=== PATIENT | male | born 1995 | race African-American/Black ===

== ENCOUNTER 2022-07-30 08:29 | Emergency (ER) | payer OTHER, SELFPAY ==
--- NOTE | ~2022-07-30 | CT_ITS ---
EXAMINATION: CT abdomen pelvis wo IV con CLINICAL INFORMATION: Reason for Exam LLQ pain with vomiting COMPARISON: No prior CT available for comparison. TECHNIQUE: Multidetector volumetric imaging was performed from the superior aspect of the liver through the pubic symphysis , noncontrasted study. Sagittal and coronal reformatted images were obtained on the technologist's workstation. This CT examination was performed using dose optimization techniques as appropriate, variously including the following: *Automated exposure control *Adjustment of mA and/or kV according to patient size (this includes techniques or standardized protocols for targeted exams where dose is matched to indication/reason for exam; i.e. extremities or head) *Use of iterative reconstruction technique DLP: 710 mGy-cm FINDINGS: LOWER THORAX: Included lung bases are clear. HEPATOBILIARY: Focal hypodense area in the right lobe of the liver segment 7 measures 1.4 x 0.8 cm, not well characterized on this noncontrast CT scan, could be a hemangioma, versus other liver lesions. This could be further characterized with more imaging including ultrasound or MRI. GALLBLADDER: Gallbladder unremarkable. SPLEEN: Spleen is normal in size. PANCREAS: No focal mass or ductal dilatation. STOMACH AND GASTROINTESTINAL TRACT: Stomach is grossly unremarkable. There is no bowel distention or thickening. Appendix not visualized however no secondary signs of appendicitis, cecal fat is clear. No dilated blind loop around the cecum. ADRENALS: No adrenal nodules. KIDNEYS/URETERS: Multiple tiny nonobstructing kidney stones, measuring 1 mm each in both right and left kidneys, no obstruction, no hydronephrosis. Perinephric fat remain clear. No hydronephrosis. URINARY BLADDER: Urinary bladder is decompressed unopacified. PELVIC VISCERA: Rectum and perirectal fat are clear. PERITONEUM: No free air or fluid. LYMPH NODES: No lymphadenopathy. VASCULAR:Abdominal aorta normal in size, no aneurysm found. BONES, ABDOMINAL WALL AND SOFT TISSUES: Age-appropriate changes of the spine and skeletal system, no destructive osteolytic or osteosclerotic bone lesion found CT/CT abdomen pelvis wo IV con IMPRESSION: * No CT evidence of acute intra-abdominal process to explain patient's pain symptoms. * There are tiny bilateral nonobstructing kidney stones. No hydronephrosis. * Focal hypodense area in the right lobe of the liver segment 7 measures 1.4 x 0.8 cm, not well characterized on this noncontrast CT scan, could be a hemangioma versus other liver lesions. This could be further characterized with more imaging including ultrasound or contrast-enhanced MRI.
--- NOTE | ~2022-07-30 | US_ITS ---
EXAMINATION: US ABDOMEN LIMITED CLINICAL INFORMATION: Abdominal pain. COMPARISON: CT abdomen and pelvis noncontrast 07/30/2022. TECHNIQUE: Real-time imaging of the right upper quadrant abdominal viscera. FINDINGS: PANCREAS: The visualized pancreas is normal in size and contour and echogenicity. The distal body and tail are obscured by bowel gas and not imaged. There is no pancreatic ductal dilatation or retroperitoneal effusion. LIVER: The liver is normal in size and smooth in contour and homogeneous in echogenicity. The hypodensity noted on CT segment 7 right lobe is not demonstrated on ultrasound. There is no parenchymal lesion. No intrahepatic biliary duct dilatation seen. Color Doppler shows portal flow towards the liver. GALLBLADDER: Distention. No wall thickening, calculi, or sludge. No pericholecystic fluid. Negative sonographic Wagner's sign. COMMON BILE DUCT: Normal in caliber measuring 0.6 cm in diameter. RIGHT KIDNEY: Normal. No hydronephrosis. No renal calculi or focal parenchymal lesions. The kidney measures 9.9 cm in maximum dimension. FREE FLUID: None. US/US abdomen limited IMPRESSION: 1. No cholelithiasis or ductal dilatation. 2. No right hydronephrosis. 3. Liver unremarkable. Hypodensity noted on CT segment 7 right lobe not demonstrated on ultrasound.
[2022-07-30 08:52] VITALS: BP 149/94; PULSE 74; RESP 16; TEMP 36.8; O2SAT 98; BMI 32.5
[2022-07-30] MEDS: Ondansetron ODT 4 MG TAB.RAPDIS TRANSLINGU (09:10)
[2022-07-30 09:11] VITALS: BP 142/92; PULSE 64; RESP 16; TEMP 36.4; O2SAT 97
--- NOTE | 2022-07-30 09:25 | PC.NURSE ---
patient a/ox4 . juan arla . heart rate regular at 76 beats per minute . breathing even and unlabored . lungs clear throughout . skin moist , arm and appropriate for ethnicity . abdomen soft . hypoactive bowel sounds noted throughout . rebound tenderness noted in left lower quadrant , patient reports 8 out of ten pain level . patient vomited once on arrival to room , medicated with sublingual zofran as ordered . patient on secured entrance monitor . patient aware of plan of care .
[2022-07-30] MEDS: polyethylene glycoL 3350 17 GM POWD.PACK PO (09:34)
--- NOTE | 2022-07-30 09:36 | ED_ITS ---
HPI - Nausea/Vomiting/Diarrhea General Chief complaint: Nausea/Vomiting/Diarrhea Stated complaint: Vomiting Time Seen by Provider: 07/30/22 08:57 Source: patient Mode of arrival: ambulatory Limitations: no limitations History of Present Illness HPI Narrative: 26-year-old male with a past medical history of pediatric constipation presents emergency department with complaints of LLQ abdominal pain, nausea, vomiting, and diarrhea since 2:00 a.m. with an accompanying headache. He states he was drinking a large volume of port wine, 18% alcohol per patient, yesterday and smoking marijuana prior to the beginning of his symptoms. He describes his emesis as a mix of undigested food with blood clots and states he has not moved his bowels in 3 days and describes today's diarrhea as green, thin, and 'vile'. He describes his left lower quadrant pain as sharp, 8/10 pain. Denies any melena, hematochezia, shortness of breath, chest pain, vision changes, or ear pain. He denies any recent illness or known sick contacts. MD elicited complaint: nausea, vomiting, diarrhea and abdominal pain Onset (ago): hour(s) Description of vomiting: food contents and bloody Description of diarrhea: loose and other (green) Associated nausea: Yes Associated abdominal pain: Yes Location of pain: LLQ Pain consistency: constant Severity: severe Pain scale (0-10): 8 Quality: aching and sharp Exacerbating factors: vomiting Relieving factors: none Context: alcohol abuse and marijuana use Associated symptoms: denies other symptoms Treatment prior to arrival: none Related Data Allergies Allergy/AdvReac Type Severity Reaction Status Date / Time No Known Allergies Allergy Verified 07/30/22 08:51 Review of Systems Review of Systems: In addition to documented HPI above, the additional ROS was obtained: Constitutional: No Weight loss, No Fever, No Chills ENT/Mouth: No Ear Pain, No Nasal Congestion, No Sinus Pain, No Hoarseness, No sore throat, No Rhinorrhea, No Swallowing Difficulty Cardiovascular: No Chest Pain, No SOB Respiratory: No Cough, No Sputum, No Wheezing Gastrointestinal: Per HPI Genitourinary: No Dysuria, No Urinary Frequency, No Hematuria, No Urinary Incontinence/retention, No Urgency, No Flank Pain Musculoskeletal: No joint pain, No Myalgias, No Joint Swelling Skin: No Skin Lesions, No rash Neuro: No Weakness, No Numbness, No Paresthesias Yes all other systems are reviewed and are negative Gastrointestinal: Gastrointestinal: Reports nausea PMFSH Past Medical History Attestation statement: The following information was validated with the patient. Source: old records reviewed Social History Social History Advance Directives: No Advance Directives Information Provided: Yes Physical Exam Vital Signs: Vital Signs: Last Vital Signs Temp 97.6 F 07/30/22 09:11 Pulse 64 07/30/22 09:11 Resp 16 07/30/22 09:11 BP 142/92 H 07/30/22 09:11 Pulse Ox 97 07/30/22 09:11 O2 Del Method 07/30/22 09:11 BMI result Body Mass Index 32.5 Nursing notes and vital signs reviewed. GENERAL APPEARANCE: A&0 x 4, generally well appearing, no acute distress HENMT: Normal to inspection, atraumatic, face symmetrical. Normal external ears, nose, and oropharynx clear. EYE: PERRLA, EOM intact, structures appear normal NECK: Supple without lymphadenopathy. No stiffness or restricted ROM. CHEST: Normal to inspection HEART: Normal rate and regular rhythm, normal S1/S2, no M/R/G LUNGS: LS CTA, moving air well. Able to speak in complete sentences. No crackles, wheezes, or rhonchi auscultated ABDOMEN: Soft, nondistended. Tender at LLQ. Normal bowel sounds noted. BACK: No CVAT, no obvious deformity EXTREMITIES: Moving all extremities without difficulty. No cyanosis, clubbing, or edema. Normal capillary refill. NEUROLOGICAL: Alert and oriented, moving all 4 extremities with equal strength. CN not formally tested but appearing grossly intact. Observed to ambulate with normal gait. Cognition normal SKIN: Warm and dry without any lesions, rash, or visible sores PSYCH: Cooperative, normal affect, normal thought process Course Course Course Narrative: Plan for labs, zofran, and miralax as pt has not had a BM in 3 days 0930: Miralax given and pt vomited directly after injestion. Plan for NS bolus, IV zofran and benadryl for nausea 1115: patient with improved symptoms with NS bolus,IV Zofran, and Benadryl. Plan for additional 1 L bolus 1130: CT scan showing no acute intra-abdominal process, 1 mm bilateral nonobstructing kidney stones, and hypodense area in right lobe of liver could be hemangioma versus other liver lesions. Plan for complete abdominal ultrasound for further diagnostic details. 1330: US negative for cholelithiasis, ductal dilation, hydronephrosis, liver and pancreas unremarkable. Medications Administered Discontinued Medications Generic Name Dose Route Start Last Admin Trade Name Freq PRN Reason Stop Dose Admin Diphenhydramine HCl 12.5 mg 07/30/22 09:35 07/30/22 09:48 Diphenhydramine Hcl 50 Mg/Ml Vial IVPUSH 07/30/22 09:36 12.5 mg ONCE ONE Administration Sodium Chloride 500 mls @ 500 mls/hr 07/30/22 09:45 07/30/22 10:46 Ns IV 07/30/22 10:44 Infused .Q1H PIERRE Infusion Sodium Chloride 1,000 mls @ 999 mls/hr 07/30/22 11:30 07/30/22 12:30 Ns IV 07/30/22 12:30 Infused .Q1H1M PIERRE Infusion Ondansetron HCl 4 mg 07/30/22 09:04 07/30/22 09:10 Ondansetron Odt 4 Mg Tab.Rapdis TRANSLINGU 07/30/22 09:05 4 mg ONCE ONE Administration Ondansetron HCl 4 mg 07/30/22 09:35 07/30/22 09:49 Ondansetron Hcl 4 Mg/2 Ml Vial IVPUSH 07/30/22 09:36 4 mg ONCE ONE Administration Polyethylene Glycol 17 gm 07/30/22 09:24 07/30/22 09:34 Polyethylene Glycol 3350 17 Gm Powd.Pack PO 07/30/22 09:25 17 gm ONCE ONE Administration Medical Decision Making Medical Decision Making MDM Narrative: 26-year-old male with a past medical history of pediatric constipation presents emergency department with complaints of LLQ abdominal pain, nausea, vomiting, and diarrhea since 2:00 a.m. with an accompanying headache. 1.5 L normal saline bolus, IV Zofran and Benadryl given with good relief of headache and nausea. CT abdomen consistent with no acute intra-abdominal process, small 1 mm bilateral nonobstructing kidney stones without hydronephrosis, focal hypodense area and right lobe of liver with recommendation for further imaging with ultrasound or MRI. Abdominal ultrasound showing no cholelithiasis or ductal dilation, no hydronephrosis, and unremarkable pancreas and liver with no hypodensity noted on ultrasound. HPI, PE, and diagnostics consistent with acute dehydration secondary to excessive alcohol consumption. Low suspicion for hepatitis, diverticulitis, upper or lower GI bleed, or gastroenteritis. Patient is safe for discharge at this time with plan to manage symptoms with increased hydration, [id number] Tylenol, and/or ibuprofen with dosing as per packaging. HPI, PE, diagnostics, and plan discussed with patient with no unanswered questions at this time. Patient educated to return to the emergency department with new, worsening, or concerning emergent symptoms. Recommended to follow-up with their primary care provider for further treatment and management. *Refer to Course for additional information on consultations, diagnostic interpretation, consultations, emergency department stay, conversations with patient and family, shared decision making with patient, and more information on medical decision making* Lab Data 07/30/22 09:24 07/30/22 09:24 Labs: Lab Results 07/30/22 07/30/22 Range/Units 09:24 09:24 WBC 8.8 (4.8-10.8) X10*3/uL RBC 4.82 (4.60-5.80) X10*6/uL Hgb 14.2 (14.0-18.0) g/dl Hct 40.8 L (42.0-52.0) % MCV 84.6 (80.0-98.0) fL MCH 29.5 (27.0-33.0) pg MCHC 34.8 (31.0-36.0) g/dl RDW 13.0 (11.0-16.0) % Plt Count 242 (160-400) X10*3/uL MPV 10.0 (9.4-12.4) fL Immature Gran % (Auto) 0.5 H (0.0-0.4) % Neut % (Auto) 77.7 H (45-73) % Lymph % (Auto) 18.6 L (20-40) % Josephine % (Auto) 2.7 (2-11) % Eos % (Auto) 0.3 (0-4) % Baso % (Auto) 0.2 (0-2) % Lymph # (Auto) 1.6 (1.2-4.9) X10*3/uL Josephine # (Auto) 0.2 (0.1-1.2) X10*3/uL Eos # (Auto) 0.0 (0.0-0.4) X10*3/uL Baso # (Auto) 0.0 (0.0-0.2) X10*3/uL Abs Immat Gran (auto) 0.04 H (0.00-0.03) X10*3/uL Absolute Neuts (auto) 6.8 (2.0-8.3) x10*3/uL Absolute Nucleated RBC 0.000 (0.0-0.012) X10*3/uL Nucleated RBC % (auto) 0.0 (0.0-0.2) /100WBC Sodium 141 (135-145) mmol/L Potassium 3.9 (3.3-5.1) mmol/L Chloride 103 (96-108) mmol/L Carbon Dioxide 30 H (22-29) mmol/L Anion Gap 12 (12-20) BUN 15 (9-16) mg/dL Creatinine 1.23 (0.5-1.4) mg/dL Estim Creat Clear Calc 107.8 Estimated GFR > 60 Random Glucose 159 H (60-115) mg/dL Calcium 9.7 (8.4-10.2) mg/dL Magnesium 1.8 (1.6-2.6) mg/dL Total Bilirubin 0.7 (0.0-1.0) mg/dL AST 24 (5-37) U/L ALT 28 (0-40) U/L Alkaline Phosphatase 83 (39-117) U/L Total Protein 7.9 (6.5-8.0) g/dL Albumin 4.7 (3.5-5.0) g/dL Radiology Impression Discussion of test interpretation with radiology: I have reviewed the radiologist's reading. Radiologist Impression: I have independently reviewed the CT abdomen pelvis showing no acute intra- abdominal process, multiple 1 mm nonobstructing renal stones, and liver lesion or hemangioma with ultrasound to follow for additional diagnostics EXAMINATION: CT abdomen pelvis wo IV con CLINICAL INFORMATION: Reason for Exam LLQ pain with vomiting COMPARISON: No prior CT available for comparison. TECHNIQUE: Multidetector volumetric imaging was performed from the superior aspect of the liver through the pubic symphysis , noncontrasted study. Sagittal and coronal reformatted images were obtained on the technologist's workstation. ? This CT examination was performed using dose optimization techniques as appropriate, variously including the following: *Automated exposure control *Adjustment of mA and/or kV according to patient size (this includes techniques or standardized protocols for targeted exams where dose is matched to indication/reason for exam; i.e. extremities or head) *Use of iterative reconstruction technique DLP: 710 mGy-cm FINDINGS: LOWER THORAX: Included lung bases are clear. HEPATOBILIARY: Focal hypodense area in the right lobe of the liver segment 7 measures 1.4 x 0.8 cm, not well characterized on this noncontrast CT scan, could be a hemangioma, versus other liver lesions. This could be further characterized with more imaging including ultrasound or MRI. GALLBLADDER: Gallbladder unremarkable. SPLEEN: Spleen is normal in size. PANCREAS: No focal mass or ductal dilatation. STOMACH AND GASTROINTESTINAL TRACT: Stomach is grossly unremarkable. There is no bowel distention or thickening. Appendix not visualized however no secondary signs of appendicitis, cecal fat is clear. No dilated blind loop around the cecum. ADRENALS: No adrenal nodules. KIDNEYS/URETERS: Multiple tiny nonobstructing kidney stones, measuring 1 mm each in both right and left kidneys, no obstruction, no hydronephrosis. Perinephric fat remain clear. No hydronephrosis. URINARY BLADDER: Urinary bladder is decompressed unopacified. PELVIC VISCERA: Rectum and perirectal fat are clear. PERITONEUM: No free air or fluid. LYMPH NODES: No lymphadenopathy. VASCULAR:Abdominal aorta normal in size, no aneurysm found. BONES, ABDOMINAL WALL AND SOFT TISSUES: Age-appropriate changes of the spine and skeletal system, no destructive osteolytic or osteosclerotic bone lesion found CT/CT abdomen pelvis wo IV con IMPRESSION: ? *? No CT evidence of acute intra-abdominal process to explain patient's pain symptoms. ? *? There are tiny bilateral nonobstructing kidney stones. No hydronephrosis. ? *? Focal hypodense area in the right lobe of the liver segment 7 measures 1.4 x 0.8 cm, not well characterized on this noncontrast CT scan, could be a hemangioma versus other liver lesions. This could be further characterized with more imaging including ultrasound or contrast-enhanced MRI. ? Dictated By: Joe Kirby MD Signed By: <Electronically signed by Joe Kirby MD in [place]> 07/30/22 1120 DD/ 1009 TD/TT:? Pool Manager: HS I have independently reviewed the ultrasound showing no cholelithiasis or ductal dilation, no hydronephrosis, liver and pancreas unremarkable. EXAMINATION: US ABDOMEN LIMITED CLINICAL INFORMATION: Abdominal pain. COMPARISON: CT abdomen and pelvis noncontrast 07/30/2022. TECHNIQUE: Real-time imaging of the right upper quadrant abdominal viscera. FINDINGS: PANCREAS: The visualized pancreas is normal in size and contour and echogenicity. The distal body and tail are obscured by bowel gas and not imaged. There is no pancreatic ductal dilatation or retroperitoneal effusion. LIVER: The liver is normal in size and smooth in contour and homogeneous in echogenicity. The hypodensity noted on CT segment 7 right lobe is not demonstrated on ultrasound. There is no parenchymal lesion. No intrahepatic biliary duct dilatation seen. Color Doppler shows portal flow towards the liver. GALLBLADDER: Distention. No wall thickening, calculi, or sludge. No pericholecystic fluid. Negative sonographic Wagner's sign. COMMON BILE DUCT: Normal in caliber measuring 0.6 cm in diameter. RIGHT KIDNEY: Normal. No hydronephrosis. No renal calculi or focal parenchymal lesions. The kidney measures 9.9 cm in maximum dimension. FREE FLUID: None. US/US abdomen limited IMPRESSION: 1. No cholelithiasis or ductal dilatation. 2. No right hydronephrosis. 3. Liver unremarkable. Hypodensity noted on CT segment 7 right lobe not demonstrated on ultrasound. ? Dictated By: Bakari Aguilar MD Signed By: <Electronically signed by Bakari Aguilar MD in OV> 07/30/22 1327 DD/ 1208 TD/TT:? Pool Manager: RIANNA Discharge Plan Discharge Clinical Impression: Hangover, Dehydration Patient Disposition: Home, Self-Care Instructions: Dehydration (ED), Alcohol Intoxication (ED), Polysubstance Abuse (ED) Additional Instructions: Your CT scan of abdomen pelvis shows small 1 mm stones in both the right and left kidneys with no obstruction. Referrals: Brittany Oh MD [Primary Care Provider] - Stand Alone Forms: Work/School Release Print Language: Filipino
[2022-07-30 09:37] LABS: MANUAL DIFF FLAG NO
[2022-07-30 09:39] LABS: Basophils Percent Auto 0.2 % (0-2); Eosinophils Percent Auto 0.3 % (0-4); Hematocrit 40.8 % (42.0-52.0); Hemoglobin 14.2 g/dl (14.0-18.0); Imm Gran Abs Auto 0.04 X10*3/uL (0.00-0.03); Imm Gran Pct Auto 0.5 % (0.0-0.4); Lymphocytes Absolute Auto 1.6 X10*3/uL (1.2-4.9); Lymphocytes Percent Auto 18.6 % (20-40); Mean Corpuscular HGB Conc 34.8 g/dl (31.0-36.0); Mean Corpuscular Hemoglobin 29.5 pg (27.0-33.0); Mean Corpuscular Volume 84.6 fL (80.0-98.0); Monocytes Absolute Auto 0.2 X10*3/uL (0.1-1.2); Monocytes Percent Auto 2.7 % (2-11); Neutrophils Absolute Auto 6.8 x10*3/uL (2.0-8.3); Neutrophils Percent Auto 77.7 % (45-73); Platelet Count 242 X10*3/uL (160-400); Red Blood Count 4.82 X10*6/uL (4.60-5.80); White Blood Count 8.8 X10*3/uL (4.8-10.8)
[2022-07-30] MEDS: 0.9 % Sodium Chloride 500 ML IV (09:45)
[2022-07-30] MEDS: diphenhydrAMINE HCL 50 MG/ML VIAL 12.5 MG IVPUSH (09:48)
[2022-07-30] MEDS: ondansetron HCL 4 MG/2 ML VIAL IVPUSH (09:49)
--- NOTE | 2022-07-30 09:55 | PC.NURSE ---
Patient attempted to to take PO mirralex as ordered , vomited twice . [employer] W[employer] aware . Yellow color emesis , no blood or clots noted . IV placed . Zofran , Benadryl and normal saline administered as ordered . patient aware of plan ofc are .
[2022-07-30 09:56] LABS: Alanine Aminotransferase 28 U/L (0-40); Albumin Level 4.7 g/dL (3.5-5.0); Alkaline Phosphatase 83 U/L (39-117); Anion Gap 12 (12-20); Aspartate Amino Transferase 24 U/L (5-37); Bilirubin Total 0.7 mg/dL (0.0-1.0); Blood Urea Nitrogen 15 mg/dL (9-16); Calcium 9.7 mg/dL (8.4-10.2); Carbon Dioxide 30 mmol/L (22-29); Chloride 103 mmol/L (96-108); Creatinine Clr Calc Pharmacy 107.8; Estimated Glomerular Filt Rate > 60; Glucose Random 159 mg/dL (60-115); Magnesium 1.8 mg/dL (1.6-2.6); Potassium 3.9 mmol/L (3.3-5.1); Sodium 141 mmol/L (135-145); Total Protein 7.9 g/dL (6.5-8.0)
[2022-07-30] MEDS: 0.9 % Sodium Chloride 1,000 ML 999 ML IV (11:22)
[2022-07-30 14:00] VITALS: BP 122/62; PULSE 92; RESP 16; TEMP 36.7; O2SAT 98
[2022-07-31 05:23] LABS: HBc Num1 0.09 S/CO (0.00-0.79); HBsAGNum1 0.38 S/CO (0.00-0.99); Hepatitis A Antibody IgM 0.13 Index (0-0.79); Hepatitis B Core Antibody Nonreactive (Nonreactive); Hepatitis B Surface Antigen Negative (Negative); ~HepC Num1 0.09 S/CO (0.00-0.79); ~Hepatitis A Antibody IgM Nonreactive (Nonreactive); ~Hepatitis B Surface Antibody NONREACTIVE (Nonreactive); ~Hepatitis C Antibody Nonreactive (Nonreactive)
== END 2022-07-30 14:16 | disposition home or self-care (01) ==
PROVIDERS: Nurse Practitioner Family; Emergency Provider Emergency Medicine; PCP Internal Medicine
DX: E86.0 Dehydration (principal); R11.2 Nausea with vomiting, unspecified; R19.7 Diarrhea, unspecified; F10.10 Alcohol abuse, uncomplicated; F12.90 Cannabis use, unspecified, uncomplicated; Y90.9 Presence of alcohol in blood, level not specified; R51.9 Headache, unspecified; R10.32 Left lower quadrant pain; Z79.899 Other long term (current) drug therapy
CPT/HCPCS: 36415; 74176; 76705; 80053; 83735; 85025; 86704; 86706; 86709; 86803; 87340; 96361; 96374; 96375; 99284; J1200; J2405

== ENCOUNTER 2024-07-06 13:48 | Emergency (ER) | payer OTHER, SELFPAY ==
[2024-07-06 14:09] VITALS: BP 128/54; PULSE 63; RESP 18; TEMP 37; O2SAT 100; BMI 28.1
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
[2024-07-06] MEDS: Ketorolac Tromethamine 15 MG/ML VIAL IM (15:13)
[2024-07-06 16:19] VITALS: BP 117/62; PULSE 63; RESP 14; TEMP 36.7; O2SAT 99
[2024-07-06 16:33] VITALS: BP 117/62; PULSE 63; RESP 14; TEMP 36.7
== END 2024-07-06 16:35 | disposition home or self-care (01) ==
PROVIDERS: Emergency Provider Student in an Organized Health Care Education/Training Program
DX: R68.84 Jaw pain (principal)
CPT/HCPCS: 96372; 99283; 99284; J1885

== ENCOUNTER 2024-09-28 06:10 | Emergency (ER) | payer SELFPAY ==
[2024-09-28 06:13] VITALS: BP 109/70; PULSE 79; RESP 14; TEMP 36.3; O2SAT 96; BMI 29.4
[2024-09-28 06:36] LABS: MANUAL DIFF FLAG NO
[2024-09-28 06:37] LABS: Eosinophils Absolute Auto 0.1 X10*3/uL (0.0-0.4); Eosinophils Percent Auto 2.4 % (0-4); Hematocrit 38.5 % (42.0-52.0); Hemoglobin 13.6 g/dl (14.0-18.0); Imm Gran Abs Auto 0.01 X10*3/uL (0.00-0.03); Imm Gran Pct Auto 0.2 % (0.0-0.4); Lymphocytes Absolute Auto 0.7 X10*3/uL (1.2-4.9); Lymphocytes Percent Auto 15.9 % (20-40); Mean Corpuscular HGB Conc 35.3 g/dl (31.0-36.0); Mean Corpuscular Hemoglobin 30.3 pg (27.0-33.0); Mean Corpuscular Volume 85.7 fL (80.0-98.0); Mean Platelet Volume 9.4 fL (9.4-12.4); Monocytes Absolute Auto 0.2 X10*3/uL (0.1-1.2); Neutrophils Absolute Auto 3.5 x10*3/uL (2.0-8.3); Neutrophils Percent Auto 76.5 % (45-73); Platelet Count 250 X10*3/uL (160-400); Red Blood Count 4.49 X10*6/uL (4.60-5.80); Red Cell Distribution Width 13.4 % (11.0-16.0); White Blood Count 4.6 X10*3/uL (4.8-10.8)
[2024-09-28] MEDS: ondansetron HCL 4 MG/2 ML VIAL IVPUSH (06:53)
[2024-09-28 06:59] LABS: Alanine Aminotransferase 30 U/L (0-40); Albumin Level 4.3 g/dL (3.5-5.0); Alkaline Phosphatase 79 U/L (39-117); Anion Gap 12 (12-20); Aspartate Amino Transferase 41 U/L (5-37); Bilirubin Direct 0.3 mg/dL (0.0-0.5); Bilirubin Total 1.3 mg/dL (0.0-1.0); Blood Urea Nitrogen 17 mg/dL (9-16); Calcium 9.4 mg/dL (8.4-10.2); Carbon Dioxide 27 mmol/L (22-29); Chloride 107 mmol/L (96-108); Creatinine Clr Calc Pharmacy 119.6; Estimated Glomerular Filt Rate > 60; Glucose Random 108 mg/dL (60-115); Lipase 16 U/L (8-78); Sodium 142 mmol/L (135-145)
--- NOTE | 2024-09-28 07:12 | ED_ITS ---
HPI - Nausea/Vomiting/Diarrhea General Chief complaint: Nausea/Vomiting/Diarrhea Stated complaint: food poisoning? Time Seen by Provider: 09/28/24 07:04 History of Present Illness HPI Narrative: Patient is a 28-year-old male presents today with having nausea vomiting diarrhea times about 4-5 episodes since yesterday at about 18:00. Patient had fast food last night and had nausea vomiting diarrhea. Patient complaining of abdominal cramping. From home. Diarrhea is brown. Vomiting is food. No significant surgery to the abdomen in the past. Patient is from home. Related Data Previous Rx's ?Medication ?Instructions ?Recorded ibuprofen 400 mg tablet 400 mg PO Q6H PRN pain #20 tabs 09/28/24 ondansetron 4 mg disintegrating 4 mg PO TID PRN nausea and 09/28/24 tablet vomiting 5 days #10 tabs Allergies Allergy/AdvReac Type Severity Reaction Status Date / Time No Known Allergies Allergy Verified 09/28/24 06:16 Review of Systems 2 Review of Systems: Positive nausea vomiting diarrhea Yes all other systems are reviewed and are negative PMFSH Past Medical History Attestation statement: The following information was validated with the patient. Social History Social History Smoked in Last 30 Days: No Use of substances other than those prescribed or required for medical reasons: Yes Substance Use Type: Marijuana Advance Directives: No Advance Directives Information Provided: Yes Do you have a plan to hurt others: No Plan Physical Exam 2 Vital Signs: Vital Signs: Last Vital Signs Temp 97.9 F 09/28/24 08:05 Pulse 53 09/28/24 08:05 Resp 16 09/28/24 08:05 BP 92/43 L 09/28/24 08:05 Pulse Ox 99 09/28/24 08:05 O2 Del Method Room Air 09/28/24 08:05 BMI result Body Mass Index 29.4 Appearance: Alert. Oriented X3. No acute distress. Eyes: Pupils equal, round and reactive to light. ENT: Pharynx normal. Neck: Normal inspection. Neck supple. No lymph nodes noted. No crepitus CVS: Normal heart rate and rhythm. Pulses normal. Normal S1 and S2 Respiratory: No respiratory distress. Breath sounds normal. No Wheezing. No rales Abdomen: Soft and nontender. No rigidity. No distention. good BS x4 Skin: Skin warm and dry. Normal skin color. Normal skin turgor. Extremities: No lower extremity edema. Neurovascular intact to all extremities. No Lacerations. No Rash Neuro: Oriented X 3. No motor deficit. No sensory deficit. Moving all extermities. No slurred speech Medications Administered Discontinued Medications Generic Name Dose Route Start Last Admin Trade Name Freq PRN Reason Stop Dose Admin Sodium Chloride 1,000 mls @ 999 mls/hr 09/28/24 07:15 09/28/24 07:41 Ns IV 09/28/24 08:15 999 mls/hr .Q1H1M PIERRE Administration Sodium Chloride 1,000 mls @ 999 mls/hr 09/28/24 07:15 09/28/24 07:41 Ns IV 09/28/24 08:15 999 mls/hr .Q1H1M PIERRE Administration Ketorolac Tromethamine 15 mg 09/28/24 07:12 09/28/24 07:40 Ketorolac Tromethamine 15 Mg/Ml Vial IVPUSH 09/28/24 07:13 15 mg ONCE ONE Administration Ondansetron HCl 4 mg 09/28/24 06:39 09/28/24 06:53 Ondansetron Hcl 4 Mg/2 Ml Vial IVPUSH 09/28/24 06:40 4 mg ONCE ONE Administration Medical Decision Making Medical Decision Making [facility] Narrative: Positive nausea vomiting diarrhea after eating fast food. Patient abdominal exam is benign. Given IV fluids symptomatically improved Toradol for pain patient's white count is normal electrolytes unremarkable COVID flu RSV were all negative. In no distress will discharge home. [place] at this time risk of appendicitis low Differential Diagnosis Differential Diagnoses: The differential diagnosis associated with the presentation includes Appendicitis, colitis, obstruction abscess perforation Admission/Observation Consideration of admission/observation: Escalation of care including admission/observation considered Lab Data [facility] Lab Attestation statement: I reviewed the patient's lab results. 09/28/24 06:30 09/28/24 06:30 Labs: Lab Results 09/28/24 Range/Units 06:30 WBC 4.6 L (4.8-10.8) X10*3/uL RBC 4.49 L (4.60-5.80) X10*6/uL Hgb 13.6 L (14.0-18.0) g/dl Hct 38.5 L (42.0-52.0) % MCV 85.7 (80.0-98.0) fL MCH 30.3 (27.0-33.0) pg MCHC 35.3 (31.0-36.0) g/dl RDW 13.4 (11.0-16.0) % Plt Count 250 (160-400) X10*3/uL MPV 9.4 (9.4-12.4) fL Immature Gran % (Auto) 0.2 (0.0-0.4) % Neut % (Auto) 76.5 H (45-73) % Lymph % (Auto) 15.9 L (20-40) % Wilson % (Auto) 5.0 (2-11) % Eos % (Auto) 2.4 (0-4) % Baso % (Auto) 0.0 (0-2) % Lymph # (Auto) 0.7 L (1.2-4.9) X10*3/uL Wilson # (Auto) 0.2 (0.1-1.2) X10*3/uL Eos # (Auto) 0.1 (0.0-0.4) X10*3/uL Baso # (Auto) 0.0 (0.0-0.2) X10*3/uL Abs Immat Gran (auto) 0.01 (0.00-0.03) X10*3/uL Absolute Neuts (auto) 3.5 (2.0-8.3) x10*3/uL Absolute Nucleated RBC 0.000 (0.0-0.012) X10*3/uL Nucleated RBC % (auto) 0.0 (0.0-0.2) /100WBC Sodium 142 (135-145) mmol/L Potassium 4.0 (3.3-5.1) mmol/L Chloride 107 (96-108) mmol/L Carbon Dioxide 27 (22-29) mmol/L Anion Gap 12 (12-20) BUN 17 H (9-16) mg/dL Creatinine 1.04 (0.5-1.4) mg/dL Estim Creat Clear Calc 119.6 Estimated GFR > 60 Random Glucose 108 (60-115) mg/dL Calcium 9.4 (8.4-10.2) mg/dL Total Bilirubin 1.3 H (0.0-1.0) mg/dL Direct Bilirubin 0.3 (0.0-0.5) mg/dL AST 41 H (5-37) U/L ALT 30 (0-40) U/L Alkaline Phosphatase 79 (39-117) U/L Total Protein 8.0 (6.5-8.0) g/dL Albumin 4.3 (3.5-5.0) g/dL Lipase 16 (8-78) U/L Influenza Type A (PCR) NEGATIVE (Negative) Influenza Type B (PCR) NEGATIVE (Negative) RSV RNA Qual (PCR) NEGATIVE (Negative) SARS-CoV-2 RNA (RT-PCR) NEGATIVE (Negative) Prescription Management I considered prescription management with: Antibiotic (Antibiotics not needed) Social Determinants Patient?s care significantly limited by Social Determinants of Health including: Problems related to primary support group Discharge Plan Discharge Clinical Impression: Gastroenteritis Patient Disposition: Home, Self-Care Instructions: Gastroenteritis (DC) Prescriptions: New ibuprofen 400 mg tablet 400 mg PO Q6H PRN (Reason: pain) Qty: 20 0RF ondansetron 4 mg tablet,disintegrating 4 mg PO TID PRN (Reason: nausea and vomiting) 5 Days Qty: 10 0RF Referrals: Physician,Unknown J [Primary Care Provider] - 09/30/24 Stand Alone Forms: Work/School Release Print Language: Mauritian
[2024-09-28 07:13] LABS: Influenza A PCR NEGATIVE (Negative); Influenza B PCR NEGATIVE (Negative); Resp Syncy Virus RNA Qual PCR NEGATIVE (Negative); SARS COV2 PCR INHOUSE NEGATIVE (Negative)
[2024-09-28] MEDS: Ketorolac Tromethamine 15 MG/ML VIAL IVPUSH (07:40)
[2024-09-28] MEDS: 0.9 % Sodium Chloride 1,000 ML 999 ML IV ×2 (07:41)
[2024-09-28 08:05] VITALS: BP 92/43; PULSE 53; RESP 16; TEMP 36.6; O2SAT 99
[2024-09-28 09:04] VITALS: BP 110/78; PULSE 53; RESP 16; TEMP 36.6; O2SAT 99
== END 2024-09-28 09:05 | disposition home or self-care (01) ==
PROVIDERS: Emergency Provider Emergency Medicine Emergency Medical Services
DX: K52.9 Noninfective gastroenteritis and colitis, unspecified (principal); R11.2 Nausea with vomiting, unspecified; Z03.818 Encounter for observation for suspected exposure to other biological agents ruled out
CPT/HCPCS: 0241U; 80053; 82248; 83690; 85025; 96361; 96374; 96375; 99284; 99285; J1885; J2405

== ENCOUNTER 2025-05-04 11:40 | Emergency (ER) | payer SELFPAY ==
--- NOTE | ~2025-05-04 | XR_ITS ---
EXAMINATION: XR THUMB, RIGHT CLINICAL INFORMATION: fall onto right thumb COMPARISON: None available. TECHNIQUE: Three views of the right thumb. FINDINGS: The bones and soft tissues are normal. No fracture. Alignment is anatomic. Joint spaces are maintained. XR/XR finger RT min 2V IMPRESSION: Normal finger radiographs. Electronically signed by: Boni Greene MD 05/04/2025 12:37 PM EDT
[2025-05-04 12:13] VITALS: BP 116/58; PULSE 55; RESP 16; TEMP 36.7; O2SAT 98; BMI 26.0
--- NOTE | 2025-05-04 12:14 | ED_ITS ---
HPI - General Adult General Chief complaint: Extremity Injury, Upper Stated complaint: thumb inj Time Seen by Provider: 05/04/25 12:51 Source: patient Mode of arrival: ambulatory Limitations: no limitations History of Present Illness ED Provider: Estella Wolff PA-C HPI narrative: Patient is a 29 year old assigned male at with no reported medical history presenting to the emergency department today with right thumb pain. Patient states that he was playing basketball 3 days ago when he hit his right thumb playing basketball. Patient states that it has hurt ever since but he is still able to move it / use it. Patient denies any other complaints at this time. Related Data Previous Rx's ?Medication ?Instructions ?Recorded ibuprofen 400 mg tablet 400 mg PO Q6H PRN pain #20 t abs 09/28/24 ondansetron 4 mg disintegrating 4 mg PO TID PRN nausea and 09/28/24 tablet vomiting 5 days #10 tabs Allergies Allergy/AdvReac Type Severity Reaction Status Date / Time No Known Allergies Allergy Verified 05/04/25 12:15 Review of Systems Constitutional: Constitutional: Reports as per HPI Eyes: Eyes: Reports as per HPI ENT: Reports as per HPI Cardiovascular: Cardiovascular: Reports as per HPI Respiratory: Respiratory: Reports as per HPI Gastrointestinal: Gastrointestinal: Reports as per HPI Genitourinary: Genitourinary: Reports as per HPI Musculoskeletal: Musculoskeletal: Reports as per HPI Integumentary/Breasts: Skin/Breast: Reports as per HPI Neurologic: Reports as per HPI Psychiatric: Psychiatric: Reports as per HPI Endocrine: Endocrine: Reports as per HPI Hematologic/Lymphatic: Hematologic/Lymphatic: Reports as per HPI Allergic/Immunologic: Allergic/Immunologic: Reports as per HPI [facility] Past Medical History Attestation statement: The following information was validated with the patient. Source: old records reviewed and nursing notes reviewed Social History Social History Substance Use Type: Marijuana Advance Directives: No Advance Directives Information Provided: No Physical Exam ED Vital Signs: Vital Signs - 24 hr 05/04/25 12:13 05/04/25 13:08 Temperature 98.1 F 98.1 F Pulse Rate 55 55 Respiratory Rate 16 16 Blood Pressure 116/58 L 116/58 L Pulse Oximetry 98 98 Oxygen Delivery Method Room Air Room Air BMI result Body Mass Index 26.0 Const General: cooperative, no acute distress, alert and awake Nutritional Appearance: well nourished Orientation/consciousness: patient oriented x3 HENMT Head: Yes normal to inspection and Yes atraumatic Ears: hearing grossly normal bilaterally and external ears normal General nose exam: Normal external nose present, no nasal discharge noted and no epistaxis Face and sinus: Yes normal facial exam, No abrasion and No laceration Mouth: Normal oral and palatal mucosa present, no drooling and no muffled voice Eyes General: appearance normal, both eyes and all related structures Periorbital: periorbital findings normal Eyelids: Yes eyelids normal Conjunctivae: conjunctivae normal Pupils: Equal, round and reactive pupils present EOM: EOMs intact bilaterally Neck Neck: Yes normal visual inspection and Yes full ROM Resp Effort & Inspection: normal respiratory effort and able to speak in complete sentences Neuro General: patient oriented x3, moves all extremities and CN's II-XI intact bilaterally Cranial nerves: Yes Equal, round and reactive pupils present Cognition (Neuro): normal cognition Extrem General: Yes normal to inspection, Yes full ROM and Yes capillary refill normal Psych Appearance: grossly normal Mental Status: mental status grossly normal Affect: normal affect Attitude: cooperative Thought process: Normal thought process present Thought content: Normal thought content present Insight: Good insight present (Psych) Course Course Course Narrative: This is a Rapid Medical Examination (RME) performed by Jocelyn Springer PA-C in triage. Full HPI, ROS, assessment and treatment plan per primary provider in the Main ED. Hx: 29 yo M here for eval of right thumb pain. reports running and falling on the right thumb when attempting to catch himself while playing basketball. increasing pain w/ movement of right thumb since. no head strike. Plan: xrs Procedures Orthopedic Splinting/Casting Right thumb sprain: Side: right Upper Extremity Injury Location: finger (thumb) Upper Extremity Immobilizer: thumb spica Medical Decision Making Medical Decision Making MDM Narrative: Patient is a 29 year old assigned male at with no reported medical history presenting to the emergency department today with right thumb pain. Patient's physical exam was as noted in the physical exam portion of this note. Patient's right thumb ROM was normal. Patient's right thumb x-ray showed no acute process. Patient's clinical presentation is most consistent with a right thumb sprain. I explained my physical exam findings as well as all test results to the patient. I answered all questions asked by the patient. Patient requested a splint for his right thumb for comfort. Patient's right thumb was placed in a velcro thumb spica, per procedure note, without incident. Patient's PMS was intact prior to and after thumb spica placement. I stressed the importance of the patient taking his medication as directed (either prescribed or as the over the counter packaging recommends). I stressed the importance of the patient following up with his primary care provider. I stressed the importance of the patient returning to the emergency department immediately if his symptoms were to worsen or if he were to develop any dizziness, shortness of breath, difficulty breathing, chest pain, blurry vision, loss of vision, nausea, vomiting, abdominal pain, fever, chills, back pain, or any other complaints. Patient verbalized agreement and understanding with this treatment plan and discharge. Differential Diagnosis Differential Diagnoses: The differential diagnosis associated with the presentation includes Right thumb sprain Right thumb strain Right UCL injury Right RCL injury Right thumb fracture Admission/Observation Consideration of admission/observation: Escalation of care including admission/observation considered Patient would have been admitted to the hospital had his work up had any fin dings where hospital admission was appropriate and his clinical presentation warranted hospital admission. Independent Interpretation I performed an independent interpretation of an: Plain X-Ray Interpretation: My interpretation is in agreement with the radiologist's impression of this imaging study. Reason for Exam: fall onto right thumb EXAMINATION: XR THUMB, RIGHT CLINICAL INFORMATION: fall onto right thumb COMPARISON: None available. TECHNIQUE: Three views of the right thumb. FINDINGS: The bones and soft tissues are normal. No fracture. Alignment is anatomic. Joint spaces are maintained. XR/XR finger RT min 2V IMPRESSION: Normal finger radiographs. Electronically signed by: Boni Greene MD 05/04/2025 12:37 PM EDT Dictated By: Boni Greene MD Signed By: Electronically signed by Boni Greene MD 05/04/25 1237 Radiology Impression Discussion of test interpretation with radiology: I have reviewed the radiolo gist's reading. Discharge Plan Discharge Clinical Impression: Sprain of thumb Patient Disposition: Home, Self-Care Instructions: Sprain (ED), Finger Sprain (ED) Additional Instructions: Your x-ray showed no evidence of a break/fracture. IF you are prescribed home medications and/or you are taking over the counter medications at home - it is very important you continue to do so as prescribed / directed unless told otherwise. Follow up with your primary care provider. Return to the emergency department i mmediately if your symptoms worsen or if you develop any numbness, tingling, dizziness, shortness of breath, difficulty breathing, chest pain, blurry vision, loss of vision, nausea, vomiting, abdominal pain, fever, chills, back pain, or any other complaints. Please see the information below about our Patient Portal. If you are not yet enrolled in the [facility] Patient Portal, you will receive an enrollment email invitation following your visit to any [facility] [place] setting. You may also self-enroll in the Patient Portal by visiting our website: [email or web address] The following information is required to access the Patient Portal: - Your [facility] [place] [place] - Your personal home email address (must match what is in your electronic medical record, Registration staff can assist with this) - Name - Date of Capabilities of the Patient Portal: - Message some providers - View upcoming appointments - Access your health summary, medical history, and visit history - View current conditions and allergies - View procedure and lab results - View your medications, including guidelines, side effects, and precautions - Complete pre-appointment questionnaires requested by your provider - Ready summary reports of your office visits and procedures To access the Patient Portal Mobile Tigre, follow these directions: - Search iChange in the Tigre Store or Google Play Store - Download the Tigre - Search for [facility] - Enter your login/password Prescriptions: No Action ibuprofen 400 mg tablet 400 mg PO Q6H PRN (Reason: pain) Qty: 20 0RF ondansetron 4 mg tablet,disintegrating 4 mg PO TID PRN (Reason: nausea and vomiting) 5 Days Qty: 10 0RF Referrals: Group,[facility] [Primary Care Provider, Primary Care] Stand Alone Forms: Work/School Release Interventions: ED Discharge Assessment Last Done: 05/04/25 13:08 Discharge Date/Time: 05/04/25 13:09 Print Language: Maldivian
--- NOTE | 2025-05-04 13:07 | PC.NURSE ---
Addendum entered by Randi Fiscehr RN 05/04/25 13:07: amanda* Original Note: spice applied to right wrist/thumb. pt tolerated well.
[2025-05-04 13:08] VITALS: BP 116/58; PULSE 55; RESP 16; TEMP 36.7; O2SAT 98
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
== END 2025-05-04 13:09 | disposition home or self-care (01) ==
PROVIDERS: Emergency Provider Emergency Medicine
DX: S63.601A Unspecified sprain of right thumb, initial encounter (principal); X50.1XXA Overexertion from prolonged static or awkward postures, initial encounter; X50.9XXA Other and unspecified overexertion or strenuous movements or postures, initial encounter; Y93.67 Activity, basketball; Y92.310 Basketball court as the place of occurrence of the external cause; Y99.8 Other external cause status
CPT/HCPCS: 29130; 73140; 99283

== ENCOUNTER → 2025-05-04 12:14 | Outpatient (BNV) | payer SELFPAY | PROVIDERS: Visit Provider Radiology Diagnostic Radiology | DX: Z04.3 Encounter for examination and observation following other accident (principal) | CPT/HCPCS: 73140 ==

== ENCOUNTER 2025-06-03 16:49 | Emergency (ER) | payer SELFPAY ==
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
[2025-06-03 16:53] VITALS: BP 127/57; PULSE 69; RESP 18; TEMP 36.4; O2SAT 95; BMI 26.6
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
--- OUTSIDE RECORDS SUMMARY | 2025-06-03 19:54 | XMS_ITS | Clinical Summary ---
Author Organization [facility] Address [address] [place] [address] Care Team Providers Care Underwear Cutter Name Role Phone Brittany Oh MD Primary Care Provider [phone] Surgical History Surgery Date Site/Laterality Comments OTHER SURGICAL HISTORY 2011 PROCEDURE: [place] ARTHROSCOPY TEMPOROMANDIBULAR JOINT SURGICAL; COMMENT: due to [...] 3-dose SCD M series) 2024 COVID-19 Vaccine (2024-2 6 season) 2025 Influenza Vaccine (#1) 2025 RSV [...] age to complete this topic Care Teams Underwear Cutter Relationship Specialty Start Date End Date Brittany Oh MD PCP - General Internal Medicine 02/07/21
--- OUTSIDE RECORDS SUMMARY | 2025-06-03 19:54 | XMS_ITS | Data Portability ---
Author Organization [facility] [address] Address [address] [place] [address] Assessment No assessment recorded. Plan of Treatment Reminders Order Date Submit Date Provider Last Modified By Organization Details Last Modified Time Details Appointments None record ed. Lab None record ed. Referral None record ed. Procedures None record ed. Surgeries None record ed. Imaging None record ed. Medication Orders None record ed. Patient TargetsNo targets recorded. Patient InstructionsNo instructions recorded. Reason for Referral None Reported. Procedures Surgical History Date Name Laterality Status Provider Name and Address Organization Details Recorded Time OC-UDS Rapid eCup Template completed [facility] 02/11/2023 14:31:38 Imaging Results None recorded. Procedure Notes None recorded. Medical Equipment None Reported. Vitals None Recorded Social History None recorded. Functional Status None recorded. Mental Status None recorded. Family History Nothing Reported. Medical History No medical history recorded. Past Encounters Encounter ID Performer Location Encounter Start Date Encounter Closed Date Diagnosis/Indication Diagnosis SNOMED-CT Code Diagnosis ICD10 Code Diagnosis IMO Codes Diagnosis Note [id number] [address] [place] [address] 08/29/2020 10:27:30 08/29/2020 12:13:02 [id number] [address] [place] [address] 08/10/2021 16:22:53 08/10/2021 16:54:23 [id number] [address] [place] [address] 11/04/2020 15:15:06 11/04/2020 16:50:23 [id number] [facility] [address] [facility] [address] [place] [address] 02/11/2023 13:06:21 02/11/2023 14:35:57 History and physical examination, occupation 594720722 Z02.1 Health Concerns Section Related Observation LastModified by Organization Detai ls LastModified Time None Recorded Concern Status LastModified by Organization Details LastModified Time None Recorded Advance Directives Directive None Recorded Payers Insurance Date Sequence Insurance Name Policy Number Policy Gonzalez Covered Member ID Gonzalez Member ID Guarantor Name 02/11/2023 [facility] [facility] Tien Chino 02/11/2023 1 [employer] - HEALTH NET PLAN (MEDICAID HMO) RELL Chino [id number] Tien Chino
--- OUTSIDE RECORDS SUMMARY | 2025-06-03 19:54 | XMS_ITS ---
Author Name [facility] Organization Unknown Care Team Organization Name Specialty Phone Email Start Date End Da te [facility] Primary [facility] 05/21/2022 03/01/20 24
[2025-06-03 20:04] VITALS: BP 132/81; PULSE 92; RESP 19; TEMP 36.7; O2SAT 100
== END 2025-06-03 20:05 | disposition home or self-care (01) ==
PROVIDERS: Emergency Provider Emergency Medicine
DX: S29.9XXA Unspecified injury of thorax, initial encounter (principal); M54.50 Low back pain, unspecified; R51.9 Headache, unspecified; M54.2 Cervicalgia; V43.52XA Car driver injured in collision with other type car in traffic accident, initial encounter; Y93.9 Activity, unspecified; Y92.410 Unspecified street and highway as the place of occurrence of the external cause; Y99.8 Other external cause status
CPT/HCPCS: 70450; 72072; 72100; 72125; 99282; 99284

== ENCOUNTER → 2025-06-03 17:27 | Outpatient (BNV) | payer SELFPAY | PROVIDERS: Emergency Provider Emergency Medicine; Visit Provider Radiology Diagnostic Radiology | DX: M54.2 Cervicalgia (principal); Z04.3 Encounter for examination and observation following other accident; M54.50 Low back pain, unspecified; M54.6 Pain in thoracic spine; V89.2XXA Person injured in unspecified motor-vehicle accident, traffic, initial encounter | CPT/HCPCS: 70450; 72072; 72100; 72125 ==